=== PATIENT | female | born 2005 | race Two or more races ===

== ENCOUNTER 2024-10-19 12:18 | Emergency (ER) | payer OTHER, MEDICAID ==
[~2024-10-19] VITALS: Ht 170.2 cm; Wt 95.9 kg
--- NOTE | 2024-10-19 14:02 | DVH ---
EXAM: XY L HIP COMPLETE XRAY CLINICAL INDICATION: Sudden pain R/o fracture. TECHNIQUE: XY L HIP COMPLETE XRAY Comparison: None FINDINGS/IMPRESSION: There is no evidence of acute fracture or dislocation. The visualized joint space is well maintained. The alignment is anatomical. There is no radiopaque foreign body.
[2024-10-19] MEDS ORDERED: NAPR-957 PO (14:15)
--- NOTE | 2024-10-19 14:15 | ED.PDOC ---
Musculoskeletal HPI Comments L hip pain Chief Complaint: Lower Extremity Time Seen by MD: 13:08 Allergies: Coded Allergies: Penicillins (Verified Allergy, Unknown, 10/19/24) Mode of Arrival: EMS X-Ray, Labs, Meds, VS Vital Signs Date Time Temp Pulse Resp B/P (MAP) Pulse Ox O2 Delivery O2 Flow Rate FiO2 10/19/24 12:22 98.6 72 16 125/73 (90) 100 98.6 [place] [address] Ph: [phone] DIAGNOSTIC IMAGING Diagnostic Imaging Report : [id number] Signed PATIENT: Mirian Lal ACCT: [id number] UNIT: [id number] : 2005 LOC: ER ROOM / BED: / AGE / SEX: 19 / F ADM STATUS: REG ER SERVICE 1322 ORDERING PHYSICIAN: JEY CAMARGO NP PROCEDURE(s): LHIP - L HIP COMPLETE XRAY REASON: Sudden pain R/o fracture. ORDER NUMBER(s): [id number], ACCESSION NUMBER(s): [id number] EXAM: XY L HIP COMPLETE XRAY CLINICAL INDICATION: Sudden pain R/o fracture. TECHNIQUE: XY L HIP COMPLETE XRAY Comparison: None FINDINGS/IMPRESSION: There is no evidence of acute fracture or dislocation. The visualized joint space is well maintained. The alignment is anatomical. There is no radiopaque foreign body. ATED BY: SYED HAIRSTON MD DICTATED DATE/TIME: 10/19/24 1359 SIGNED BY: SYED HAIRSTON MD SIGNED DATE/TIME: 10/19/24 1359 CC: Time of 1ST Reevaluation: 14:14 Reevaluation 1ST: Improved Patient Education/Counseling: Diagnosis, Treatment Family Education/Counseling: Diagnosis, Treatment Departure 1 Departure Time of Disposition: 14:14 Impression: Primary Impression: Left hip pain Disposition: 01 HOME / SELF CARE / HOMELESS Condition: Stable e-Prescriptions Naproxen (Naproxen) 375 Mg Tab 1 TAB PO BIDPC for 10 Days, #20 TAB 0 Refills Prov: JEY CAMARGO NP 10/19/24 JEY CAMARGO NP Oct 19, 2024 14:15
[2024-10-19 14:22] VITALS: BP 125/73; PULSE 72; RESP 16; TEMP 98.6; O2SAT 100
== END 2024-10-19 14:37 | disposition home or self-care (01) ==
LOC: EDBD 12:18 → ER 12:30
DX: M25.552 Pain in left hip (principal); Z88.0 Allergy status to penicillin
CPT/HCPCS: 73502